=== PATIENT | female | born 1975 | race Caucasian/White ===

== ENCOUNTER 2018-07-16 07:04 | Day surgery (SDC) | payer OTHER ==
[~2018-07-16 07:04] MED LIST: Lactated Ringers 1,000 ML IV SCH; Lidocaine 1%/Sod Bicarbonate in NS 8.4% 1 ML Syringe IDERM PRN; Sodium Chloride 0.9% 10 ML Syringe FLUSH PRN
[2018-07-16] MEDS ORDERED: Lidocaine 1% 4 ML ONE (07:08)
[2018-07-16] MEDS ORDERED: Ondansetron 4 MG/2 ML SDV ONE (07:08)
[2018-07-16] MEDS ORDERED: Propofol 200 MG/20 ML SDV ONE (07:08)
[2018-07-16] MEDS ORDERED: fentaNYL 250 MCG/5 ML SDV ONE (07:08)
[2018-07-16] MEDS ORDERED: Midazolam 1 MG/ML 2 ML SDV ONE (07:08)
[2018-07-16] MEDS ORDERED: ceFAZolin 1 GM Vial ONE (07:09)
[2018-07-16] MEDS ORDERED: Dexamethasone 4 MG/ML SDV ONE (07:09)
--- NOTE | 2018-07-16 07:32 | PCM.PREANE ---
Preanesthetic Assessment - Procedure Proposed Procedure: endometrial galileaarion jing - Anesthesia/Transfusion/Family Hx Anesthesia History: No Prior Anesthesia Family History of Anesthesia Reaction: No Transfusion History: No Prior Transfusion(s) - Review of Systems General: No Symptoms Pulmonary: No Symptoms Cardiovascular: No Symptoms Gastrointestinal: No Symptoms Neurological: No Symptoms Other: Reports: None - Physical Assessment NPO Status Date: 07/15/18 NPO Status Time: 21:00 Pulse: 102 O2 Sat by Pulse Oximetry: 97 Respiratory Rate: 20 Blood Pressure: 132/94 Temperature: 99.6 F Height: 5 ft 5 in Weight: 65 kg ASA Class: 1 Mental Status: Alert & Oriented x3 Airway Class: Mallampati = 1 Dentition: Reports: Normal Dentition Thyro-Mental Finger Breadths: 3 Mouth Opening Finger Breadths: 3 ROM/Head Extension: Full Lungs: Clear to Auscultation, Normal Respiratory Effort Cardiovascular: Regular Rate, Regular Rhythm - Lab Values: Laboratory Last Values WBC 8.49 K/mm3 (3.98-10.04) 07/12/18 11:58 RBC 5.05 M/mm3 (3.98-5.22) 07/12/18 11:58 Hgb 15.7 gm/L (11.2-15.7) 07/12/18 11:58 Hct 45.5 % (34.1-44.9) H 07/12/18 11:58 MCV 90.1 fl (79.4-94.8) 07/12/18 11:58 MCH 31.1 pg (25.6-32.2) 07/12/18 11:58 MCHC 34.5 g/dl (32.2-35.5) 07/12/18 11:58 RDW Std Deviation 42.3 fL (36.4-46.3) 07/12/18 11:58 Plt Count 249 K/mm3 (182-369) 07/12/18 11:58 MPV 9.9 fl (9.4-12.3) 07/12/18 11:58 Neut % (Auto) 64.1 % (34.0-71.1) 07/12/18 11:58 Lymph % (Auto) 26.6 % (19.3-51.7) 07/12/18 11:58 Stark % (Auto) 7.8 % (4.7-12.5) 07/12/18 11:58 Eos % (Auto) 1.1 (0.7-5.8) 07/12/18 11:58 Baso % (Auto) 0.2 % (0.1-1.2) 07/12/18 11:58 Neut # (Auto) 5.44 K/mm3 (1.56-6.13) 07/12/18 11:58 Lymph # (Auto) 2.26 K/mm3 (1.18-3.74) 07/12/18 11:58 Stark # (Auto) 0.66 K/mm3 (0.24-0.36) H 07/12/18 11:58 Eos # (Auto) 0.09 K/mm3 (0.04-0.36) 07/12/18 11:58 Baso # (Auto) 0.02 K/mm3 (0.01-0.08) 07/12/18 11:58 Urine Color Yellow (Yellow) 07/12/18 11:58 Urine Appearance Clear (Clear) 07/12/18 11:58 Urine pH 6.5 (5.0-8.0) 07/12/18 11:58 Ur Specific [place] 1.010 (1.005-1.030) 07/12/18 11:58 Urine Protein Negative (Negative) 07/12/18 11:58 Urine Glucose (UA) Negative (Negative) 07/12/18 11:58 Urine Ketones Negative (Negative) 07/12/18 11:58 Urine Occult Blood Negative (Negative) 07/12/18 11:58 Urine Nitrite Negative (Negative) 07/12/18 11:58 Urine Bilirubin Negative (Negative) 07/12/18 11:58 Urine Urobilinogen 0.2 (0.2-1.0) 07/12/18 11:58 Ur Leukocyte Esterase Negative (Negative) 07/12/18 11:58 Urine HCG, Qual Negative (NEGATIVE) 07/12/18 11:58 - Allergies Allergies/Adverse Reactions: Allergies Allergy/AdvReac Type Severity Reaction Status Date / Time Penicillins Allergy Rash Verified 07/15/18 13:32 - Blood Blood Available: No - Acknowledgements Anesthesia Type Planned: General Anesthesia Pt an Appropriate Candidate for the Planned Anesthesia: Yes Alternatives and Risks of Anesthesia Discussed w Pt/Guardian: Yes Pt/Guardian Understands and Agrees with Anesthesia Plan: Yes PreAnesthesia Questionnaire - Past Health History Medical/Surgical History: Denies Medical/Surgical History Cardiovascular History: Reports: None Respiratory History: Reports: None Gastrointestinal History: Reports: GERD [employer] History: Reports: Musculoskeletal History: Reports: None Psychiatric History: Reports: None Oncologic (Cancer) History: Reports: None - SUBSTANCE USE Smoking Status *Q: Never Smoker Tobacco Use Within Last Twelve Months: No Second Hand Smoke Exposure: No Days Per Week of Alcohol Use: 3 Number of Drinks Per Day: 1 Total Drinks Per Week: 3 Recreational Drug Use History: No - HOME MEDS Home Medications: Home Meds . [No Known Home Meds] 07/15/18 [History] - CURRENT (IN HOUSE) MEDS Current Meds: Current Medications Lactated Ringer's (Ringers, Lactated) 1,000 mls @ 125 mls/hr IV ASDIRECTED STEVE Stop: 07/16/18 23:00 Lidocaine/Sodium Bicarbonate (Buffered Lidocaine 1% In Ns 8.4%) 0.25 ml IDERM ONETIME PRN PRN Reason: Prior to IV Start Stop: 07/16/18 18:00 Sodium Chloride (Saline Flush) 10 ml FLUSH ASDIRECTED PRN PRN Reason: Keep Vein Open Stop: 07/16/18 18:00 Discontinued Medications Cefazolin Sodium (Ancef) Confirm Administered Dose 2 gm .ROUTE .STK-MED ONE Stop: 07/16/18 07:10 Dexamethasone (Dexamethasone) Confirm Administered Dose 4 mg .ROUTE .STK-MED ONE Stop: 07/16/18 07:10 Fentanyl (Sublimaze) Confirm Administered Dose 250 mcg .ROUTE .STK-MED ONE Stop: 07/16/18 07:09 Lidocaine HCl (Xylocaine-Mpf 1%) Confirm Administered Dose 4 mls @ as directed .ROUTE .STK-MED ONE Stop: 07/16/18 07:09 Midazolam HCl (Versed 1 Mg/Ml) Confirm Administered Dose 2 mg .ROUTE .STK-MED ONE Stop: 07/16/18 07:09 Ondansetron HCl (Zofran) Confirm Administered Dose 4 mg .ROUTE .STK-MED ONE Stop: 07/16/18 07:09 Propofol (Diprivan 20 Ml) Confirm Administered Dose 200 mg .ROUTE .STK-MED ONE Stop: 07/16/18 07:09
[2018-07-16] MEDS ORDERED: Ketorolac 30 MG/ML SDV ONE (07:51)
[2018-07-16] MEDS ORDERED: Ondansetron 4 MG/2 ML SDV IVPUSH PRN ×2 (07:53→08:29)
[2018-07-16] MEDS ORDERED: Meperidine 50 MG/ML Vial IVPUSH PRN (07:53)
[2018-07-16] MEDS ORDERED: HYDROmorphone 0.5 MG/0.5 ML Syringe IVPUSH PRN (07:53)
[2018-07-16] MEDS ORDERED: fentaNYL 100 MCG/2 ML SDV IVPUSH PRN (07:53)
[2018-07-16] MEDS ORDERED: Ketorolac 30 MG/ML SDV IVPUSH SCH (08:30)
--- NOTE | 2018-07-16 08:31 | PCM.POSTAN ---
POST ANESTHESIA ASSESSMENT - MENTAL STATUS Mental Status: Alert, Oriented - VITAL SIGNS Pulse Rate: 87 SaO2: 100 Resp Rate: 12 Blood Pressure: 120/84 Temperature: 98 F - RESPIRATORY Respiratory Status: Respiratory Rate WNL, Airway Patent, O2 Saturation Stable, Supplemental Oxygen - CARDIOVASCULAR CV Status: Pulse Rate WNL, Blood Pressure Stable - GASTROINTESTINAL GI Status: No Symptoms - PAIN Pain Score: 0 - POST OP HYDRATION Hydration Status: Adequate & Stable
--- NOTE | 2018-07-16 08:35 | PCM.OPNOTE ---
- General Post-Op/Procedure Note Date of Surgery/Procedure: 07/16/18 Operative Procedure(s): Hysteroscopy, NovaSure endometrial ablation Findings: And intracavity appeared normal. It sounded to 10 cm. The width of the uterine cavity was 4.6 cm. Length was 6.5 cm and cervix was an additional 3.0 cm. The power setting was 164. Treatment duration 58 seconds. Pre Op Diagnosis: Menorrhagia Post-Op Diagnosis: Same Anesthesia Technique: General ET Tube Primary Surgeon: Marito Riggins Anesthesia Provider: Radha Blunt Fluid Replacement, Intraop: 700 EBL in mLs: 5 Complications: None Condition: Good Free Text/Narrative:: Surgery duration: 60 minutes Procedure: The patient is taking the operative placed in a supine position on the operating table. She received 2 g of Ancef preoperatively for infection prophylaxis and had sequential compression stockings in place for DVT prophylaxis. Patient was given general anesthesia. She is placed in a dorsal lithotomy position and prepped and draped in usual fashion. An exam under anesthesia was performed. Findings as described above. A weighted speculum was placed in the vagina. Cervix is visualized. It was grasped anteriorly with a single-tooth tenaculum. Uterus was then sounded to a depth of 10-1/2 cm. It is from the anterior, mid position. The cervix was dilated to entrance of a 5 mm 12 rigid hysteroscope. This was placed without problem and normal saline was used as a distending medium. The endometrial cavity was visualized. Findings as described above. Endometrial ablation was then performed. Should be noted consent was appropriately signed by the patient prior to the procedure. The cervix was dilated to allow placement of the NovaSure endometrial apparatus. Uterus had sounded to 10 cm -3 cm for cervix for uterine/endometrial cavity length of 7 cm. The NovaSure device was set to 6.5 now centimeters as this was maximal setting. The image cavities foundry 4.6 cm in width. Uterine cavity integrity check was then performed and the endometrial cavity was then ablated. Energy was 164. The ablation took approximately 58 seconds. The array was collapsed and the apparatus was removed. Hysteroscope was then placed back into the endometrial cavity. Blood was flushed out and the findings were consistent with a cauterized endometrial cavity. At this point the scope was removed. The vagina was cleared of old blood , the cervix was released and the weighted speculum was removed. Patient was returned to supine position and awakened from general anesthesia. She tolerated the procedure well and operating room in good condition.
--- NOTE | 2018-07-16 11:41 | PCM48HPAN ---
Post Anesthesia Note - EVALUATION WITHIN 48HRS OF ANESTHETIC Vital Signs in Normal Range: Yes Patient Participated in Evaluation: No (patient discharged. visited with nurse) Respiratory Function Stable: Yes Airway Patent: Yes Cardiovascular Function Stable: Yes Hydration Status Stable: Yes Pain Control Satisfactory: Yes Nausea and Vomiting Control Satisfactory: Yes Mental Status Recovered: Yes
== END 2018-07-16 10:20 | disposition home or self-care (01) ==
LOC: JD.SDS 07:04
PROVIDERS: ATTEND Obstetrics & Gynecology
DX: N92.0 Excessive and frequent menstruation with regular cycle (principal); K21.9 Gastro-esophageal reflux disease without esophagitis; Z88.0 Allergy status to penicillin
CPT/HCPCS: 36415; 58563; 81003; 81025; 85025; J0690; J1100; J1885; J2250; J2405; J2704; J3010; J7120; J2001